=== PATIENT | male | born 1980 | race Caucasian/White ===

== ENCOUNTER 2019-04-15 09:29 | Outpatient (RCR) | payer SELFPAY | END 2019-04-29 00:01 | LOC: SPT 09:29 | PROVIDERS: Family Provider Nurse Practitioner Family; Visit Provider Licensed Practical Nurse | DX: M54.9 Dorsalgia, unspecified (principal) | CPT/HCPCS: 97110 ×4; 97161 ==

== ENCOUNTER 2019-04-30 06:00 | Outpatient (RCR) | payer MEDICAID, SELFPAY | END 2019-04-30 23:00 | disposition home or self-care (01) | LOC: SPT 06:00 | PROVIDERS: PCP Nurse Practitioner; Visit Provider Licensed Practical Nurse | DX: G89.29 Other chronic pain (principal); M54.9 Dorsalgia, unspecified ==

== ENCOUNTER 2020-06-11 12:12 | Outpatient (CLI) | payer BC, MEDICAID, SELFPAY ==
--- NOTE | 2020-06-11 12:26 | XR_ITS ---
WS: [id number] Cervical spine, 6 views including AP, lateral, both obliques and odontoid views, 06/11/2020 Clinical Data: LOW BACK PAIN/NECK PAIN/THORACIC BACK PAIN Comparison: None. Findings: No compression fractures are seen. The disc heights are normal. There is no prevertebral so ft tissue swelling. The odontoid is unremarkable. The soft tissues of the neck and the lung apices ar e normal. No oblique films show no neural foraminal narrowing. There is minimal anterior inferior ost eoarthritic spurring C5 and C6. XR/XR cervical spine 4-5V [id number] Impression: 1. Mild osteoarthritis at C5 and C6. 2. Negative oblique films.
--- NOTE | 2020-06-11 12:26 | XR_ITS ---
WS: [id number] Thoracic spine, 2 views, 06/11/2020 Clinical Data: LOW BACK PAIN/PAIN IN THORACIC SPINE/CERVICALGIA Comparison: None. Findings: No compression fractures are seen. The disc heights are normal. There is osteoarthritic spurring of the T7 through T9 vertebral bodies. The paravertebral region is n ormal. XR/XR thoracic spine 2V [id number] Impression: Osteoarthritis of vertebral bodies T7-T9.
--- NOTE | 2020-06-11 12:26 | XR_ITS ---
WS: [id number] Lumbar spine, 5 views including AP, lateral, L5-S1 spot and both obliques, 06/11/2020 Clinical Data: LOW BACK PAIN/CERVICALGIA/PAIN IN THORACIC SPINE Comparison: Lateral lumbar spine, 04/01/2019. Findings: No compression fractures or subluxation is seen. There is disc space narrowing at L4-L5 and L5-S1.. T he transverse processes and SI joints are normal. And L5-S1. No significant subluxation is seen. The oblique films show no spondylolysis. XR/XR lumbar spine min 4V 13214 Impression: Degenerative disc narrowing at L4-L5 and L5-S1.
== END 2020-06-11 12:13 | disposition home or self-care (01) ==
PROVIDERS: PCP Nurse Practitioner Family; Visit Provider Nurse Practitioner Family
DX: M54.5 Low back pain (principal); M47.814 Spondylosis without myelopathy or radiculopathy, thoracic region; M47.812 Spondylosis without myelopathy or radiculopathy, cervical region
CPT/HCPCS: 72050; 72070; 72110

== ENCOUNTER 2020-08-14 16:11 | Emergency (ER) | payer BC, MEDICAID, SELFPAY ==
[2020-08-14 16:12] VITALS: BP 174/90; PULSE 60; RESP 15; TEMP 36.3; O2SAT 99; BMI 50.2
--- NOTE | 2020-08-14 16:14 | XRR_ITS ---
PROCEDURE INFORMATION: Exam: XR Right Hand Exam date and time: 08/14/2020 4:22 PM Age: 40 years old Clinical indication: Injury or trauma; Other: Punched wall; Blunt trauma (contusions or hematomas); Hand; Right; Additional info: Pain TECHNIQUE: Imaging protocol: XR Right hand. Views: 3 or more views. COMPARISON: No relevant prior studies available. FINDINGS: Bones/joints: Normal. Soft tissues: Normal. XR/XR hand RT min 3V* [id number] IMPRESSION: No acute findings.
[2020-08-14 16:22] VITALS: BP 174/90; PULSE 66; RESP 18; O2SAT 99
--- NOTE | 2020-08-14 16:23 | W.ED.EXTPRO ---
HPI - Extremity Problem General: Chief complaint: Extremity Injury, Upper Stated complaint: R HAND INJURY Time Seen by Provider: 08/14/20 16:14 History of Present Illness: HPI Narrative: 40-year-old male presents emergency room with complaint of right hand pain. Patient became upset over a disagreement with his one of his children and punched a wall. There is a deformity of the third metacarpal as well as a complaint of right wrist pain MD Complaint: extremity pain and joint pain Onset (ago): minute(s) Pain Consistency: constant Location: right and upper extremity (And) Quality: sharp Radiation: proximal Relieving factors: immobilization Exacerbating factors: range of motion and palpation Associated symptoms: Reports arthralgias; Deny chest pain, fever(s), myalgias, rash or short of breath Review of Systems Const: Denies: fever(s) ENMT: Denies: throat pain, ear or mastoid pain, nasal discharge or nasal congestion Card: Denies: chest pain Resp: Denies: dyspnea, productive cough or non-productive cough GI: Denies: abdominal pain, nausea, vomiting, hematemesis, coffee ground emesis, diarrhea, constipation, bloating, hematochezia or melena : Denies: flank pain, dysuria, urinary frequency or urinary urgency Skin/Breast: Denies: rash Physical Exam Const: COMMON NORMALS: no acute distress GENERAL APPEARANCE: cooperative and comfortable ORIENTATION/CONSCIOUSNESS: Yes awake, Yes oriented to person, Yes oriented to place and Yes oriented to time HENMT: COMMON NORMALS: normocephalic, atraumatic and hearing grossly normal bilaterally HEAD & SCALP: normocephalic and atraumatic Neck/C-Spine: COMMON NORMALS: no JVD Resp: COMMON NORMALS: normal respiratory effort, No retractions, No use of accessory muscles and clear to auscultation bilaterally AUSCULTATION: clear to auscultation bilaterally Cardio: COMMON NORMALS: no JVD, regular rate, regular rhythm and No murmurs present (Cardio) RATE: regular rate RHYTHM: regular rhythm GI: COMMON NORMALS: Soft to palpation and No hepatosplenomegaly present AUSCULTATION: Yes normoactive bowel sounds PALPATION: Yes Soft to palpation, No Tenderness to palpation present (GI), No Guarding due to palpation present (GI) and Yes No hepatosplenomegaly present Extremity: COMMON NORMALS: normal to inspection, capillary refill normal, no clubbing, cyanosis or edema, no calf tenderness and no pedal edema Neuro: SENSORIUM/ORIENTATION: Yes oriented to person, Yes oriented to place and Yes oriented to time Skin: COMMON NORMALS: no rashes or lesions noted GENERAL SKIN EXAM: no rashes or lesions noted Course Vital Signs: Vital signs: Vital Signs Temperature 97.3 F L 08/14/20 16:12 Pulse Rate 70 08/14/20 18:20 Respiratory Rate 16 08/14/20 18:20 Blood Pressure 171/88 08/14/20 18:20 Pulse Oximetry 98 08/14/20 18:20 MDM - Extremity (Nontraumatic) MDM Narrative: Medical decision making narrative: Due to x-rays no evidence of fracture ice anti-inflammatories avoid punching large stationary objects Discharge Plan Discharge Patient Disposition: Home Clinical Impression: Sprain and strain of wrist Condition: Stable Prescriptions: New diclofenac sodium 75 mg tablet,delayed release (DR/EC) 75 mg PO Q12H PRN (Reason: pain) Qty: 20 RF: 0 Discharge Orders: Discharge ED (Routine); Ordered 08/14/20 Ordered By: Dickson Eli Referrals: Pfeiffer,Marie, DINING ROOM CAPTAIN [Primary Care Provider] - Discharge Diet: Usual diet Discharge Activity: Resume usual activity Patient Instructions: Opioid Safety Activity Restrictions/Additional Instructions: Ice to the hand. Avoid punching solid objects. 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
[2020-08-14 16:28] VITALS: PULSE 68
--- NOTE | 2020-08-14 16:30 | XRR_ITS ---
PROCEDURE INFORMATION: Exam: XR Right Wrist Exam date and time: 08/14/2020 4:37 PM Age: 40 years old Clinical indication: Injury or trauma; Other: Punched a wall; Blunt trauma (contusions or hematomas); Wrist; Right; Additional info: Pain TECHNIQUE: Imaging protocol: XR Right wrist. Views: 3 or more views. COMPARISON: CR (UP EXM, ) 08/14/2020 4:18 PM FINDINGS: Bones/joints: Normal. Soft tissues: Normal. XR/XR wrist RT w scaphoid [id number] IMPRESSION: No acute findings.
[2020-08-14 18:20] VITALS: BP 171/88; PULSE 70; RESP 16; O2SAT 98
== END 2020-08-14 18:20 | disposition home or self-care (01) ==
PROVIDERS: Emergency Provider Family Medicine; PCP Nurse Practitioner Family
DX: S63.501A Unspecified sprain of right wrist, initial encounter (principal); S66.911A Strain of unspecified muscle, fascia and tendon at wrist and hand level, right hand, initial encounter; W22.09XA Striking against other stationary object, initial encounter
CPT/HCPCS: 73110; 73130; 99282

== ENCOUNTER 2020-10-26 08:17 | Outpatient (CLI) | payer BC, MEDICAID, SELFPAY ==
--- NOTE | 2020-10-26 08:22 | US_ITS ---
WS: [id number] ULTRASOUND ABDOMEN LIMITED CLINICAL INFORMATION: EPIGASTRIC PAIN COMPARISON: None. FINDINGS: No hernia visualized left upper quadrant. Liver Size: Enlarged Craniocaudal length: 17.2 cm. Echogenicity: Diffuse fatty infiltration liver. Surface nodularity: None. Mass (size and location): None. Bile ducts Intrahepatic ducts: Normal. Common bile duct diameter: 0.4 cm. Gallbladder Normal. Gallstones: None. Gallbladder sludge: None. Gallbladder wall thickening: None. Pericholecystic fluid: None. Sonographic Doyle sign: Absent. Pancreas Normal as visualized. Right kidney: Normal. Hydronephrosis: None. Size: 13.2 cm x 7.2 cm x 6.4 cm. Abdominal aorta and IVC Visualized portions are normal. Ascites: None. US/US abdomen limited [id number] IMPRESSION: 1. No hernia visualized in the left upper quadrant. 2. Hepatomegaly with diffuse fatty infiltration. 3. Gallbladder is normal. 4. No hydronephrosis in right kidney. 5. Normal common bile duct.
== END 2020-10-26 08:18 | disposition home or self-care (01) ==
PROVIDERS: PCP Nurse Practitioner Family; Visit Provider Nurse Practitioner Family
DX: R10.13 Epigastric pain (principal); R16.0 Hepatomegaly, not elsewhere classified; K76.0 Fatty (change of) liver, not elsewhere classified
CPT/HCPCS: 76705

== ENCOUNTER 2021-09-13 12:34 | Outpatient (CLI) | payer BC, MEDICAID, SELFPAY ==
--- NOTE | 2021-09-13 12:55 | USCV_ITS ---
Almas Haskins Age: 41 Gender: M : 1980 Exam Date: 09/13/2021 13:03 Ordering Phys: Mely Hummel APN Technologist: [place] [facility] [place]: Chest pain BP: 150 / 85 HR: 70 Rhythm: Sinus Technical Quality: Fair MEASUREMENTS (Male / Female) Normal Values 2D ECHO LV Diastolic Diameter PLAX 5.0 cm 4.2 - 5.9 / 3.9 - 5.3 cm LV Systolic Diameter PLAX 2.3 cm IVS Diastolic Thickness 1.0 cm 0.6 - 1.0 / 0.6 - 0.9 cm IVS Systolic Thickness 1.3 cm LVPW Diastolic Thickness 1.2 cm 0.6 - 1.0 / 0.6 - 0.9 cm LVPW Systolic Thickness 1.1 cm LVOT Diameter 2.0 cm LV Ejection Fraction 2D Teich 84.1 % LV Ejection Fraction MOD 2C 71.8 % LV Ejection Fraction 2C AL 72.8 % LA Diameter 3.8 cm Aorta at Sinotubular Diameter 2.6 cm M-MODE Aortic Annulus Diameter 3.2 cm LA Ao Ratio MM 1.4 MV E Point Septal Separation 1.0 cm DOPPLER AV Peak Velocity 153.0 cm/s LVOT Peak Velocity 106.0 cm/s AV Area Cont Eq vti 1.8 cm squared AV Area Cont Eq pk 2.2 cm squared MV Area PHT 5.0 cm squared Mitral E to A Ratio 1.0 MV E' Velocity 49.0 cm/s Mitral E to MV E' Ratio 9.0 Mitral E to LV E' Lateral Ratio 7.4 Mitral E to LV E' Septal Ratio 11.6 TR Peak Velocity 156.7 cm/s TR Peak Gradient 9.8 mmHg TV Peak E Velocity 84.0 cm/s Right Atrial Pressure 3.0 mmHg Pulmonary Artery Systolic Pressu 12.8 mmHg PV Peak Velocity 132.0 cm/s FINDINGS Left Ventricle Normal left ventricular size, systolic function and wall thickness, with no diagnostic regional wall motion abnormalities. Left ventricular ejection fraction is estimated at 60 %. Normal diastolic function. Right Ventricle Normal right ventricular size and systolic function. RVSP could not be calculated due to incomplete tricuspid regurgitation velocity profile. Right Atrium Normal right atrial size. Left Atrium Upper normal left atrial size. Mitral Valve Structurally normal mitral valve. No mitral valve stenosis. Trace mitral valve regurgitation. Aortic Valve Structurally normal trileaflet aortic valve. No aortic valve stenosis. No aortic valve regurgitation. Tricuspid Valve Structurally normal tricuspid valve. Trace tricuspid valve regurgitation. Pulmonic Valve Structurally normal pulmonic valve. No pulmonary valve stenosis. No pulmonary valve regurgitation. Pericardium No pericardial effusion. Aorta Normal size aortic root and proximal ascending aorta. IVC Inferior vena cava not visualized. CONCLUSIONS 1. Normal left ventricular size, systolic function and wall thickness, with no diagnostic regional wall motion abnormalities. Left ventricular ejection fraction is estimated at 60 %. Normal diastolic function. 2. No significant valvular abnormality. 3. No prior similar studies to compare. Mary Stout MD (Electronically Signed) Final Date: 15 Sep 2021 18:25 S
== END 2021-09-13 12:35 | disposition home or self-care (01) ==
LOC: RAD 12:38
PROVIDERS: PCP Nurse Practitioner Family; Visit Provider Nurse Practitioner
DX: R07.89 Other chest pain (principal); R00.2 Palpitations; I10 Essential (primary) hypertension; I07.1 Rheumatic tricuspid insufficiency
CPT/HCPCS: 93306

== ENCOUNTER 2021-10-10 14:53 | Outpatient (CLI) | payer BC, MEDICAID, SELFPAY ==
--- NOTE | 2021-10-10 15:03 | US_ITS ---
WS: [id number] RIGHT UPPER QUADRANT ULTRASOUND HISTORY: ABNORMAL FINDINGS OF BLOOD CHEMISTRY/ELEVATED LFT'S COMPARISON: 10/26/2020 Liver: 17.9 cm in length. Mildly enlarged liver. Mild coarse echotexture throughout. Increased attenu ation from hepatic steatosis. The entire liver is not visualized. No mass identified. No bile duct di latation. Fatty sparing adjacent to the mo hepatis. Portal Vein: Normal hepatopetal flow with monophasic waveform. Gallbladder: Normally distended gallbladder with no stones or wall thickening. CBD: 0.4 cm Pancreas: Normal size and echogenicity. Right kidney: 13.3 cm in length. Normal size and echogenicity. No hydronephrosis or mass. Aorta and IVC: Unremarkable abdominal aorta and IVC. No ascites. US/US abdomen limited [id number] IMPRESSION: 1. Moderate hepatic enlargement with hepatic steatosis and areas of fatty spar ing. 2. Normal gallbladder. 3. No bile duct dilatation.
== END 2021-10-10 14:54 | disposition home or self-care (01) ==
PROVIDERS: PCP Nurse Practitioner Family; Visit Provider Nurse Practitioner
DX: R79.89 Other specified abnormal findings of blood chemistry (principal); R16.0 Hepatomegaly, not elsewhere classified
CPT/HCPCS: 76705